=== PATIENT | male | born 1970 | race Caucasian/White ===

== ENCOUNTER → 2018-01-30 | Outpatient (CLI) | payer OTHER ==
--- NOTE | 2018-01-30 15:59 | PCVCIMAG ---
APPROVED REPORT Study performed: 01/30/2018 14:55:36 Exam: Stress Echocardiogram Indication: Dyspnea, chest pain, HTN, HLP Patient Location: Echo lab Stress Nurse: Roxana Cortez RN Status: routine Ht: 5 ft 10 in HR: 81 bpm BP: 136/82 mmHg Rhythm: NSR Procedure The patient underwent an Exercise Stress Test using the Tim Protocol. Blood pressure, heart rate, and EKG were monitored. An Echocardiogram was performed by billing and quality technician in four stages in quad fashion. At peak stress, four selected images were obtained and placed side by side with resting images for comparison. Stress Test Details Stress Test: Exercise stress testing was performed using a Tim protocol. HR Resting HR: 81 bpmMax Heart Rate (APMHR): 173 bpm Max HR Achieved: 166 bpmTarget HR (85% APMHR): 147 bpm % of APMHR: 95 Recovery HR: 105 bpm HR response to stress: Normal HR response to stress BP Resting BP: 136/82 mmHg Max BP: 180/80 mmHg Recovery BP: 140/80 mmHg BP response to stress: Normal blood pressure response to stress. ECG Resting ECG: Sinus Rhythm Stress ECG: Sinus Rhythm ST Change: Normal Arrhythmia: occasional isolated PVCs Recovery ECG: Sinus Rhythm Recovery ST Change: Normal Recovery Arrhythmia: None Clinical Reason for Termination: Maximal effort Stress Symptoms: Dyspnea Exercise duration: 11 min 2 sec Highest Stage Achieved: Stage 4: 4.2 mph at 16% grade. Exercise capacity: 13.4 METs Overall Exercise Capacity for Age: Normal Scale: Active Angina Score: None Pre-Stress Echo The resting Echocardiogram showed normal left ventricular contractility with an estimated Ejection Fraction of about 50-55%. Normal wall motion in all segments on baseline images. Post-Stress Echo The stress Echocardiogram showed normal left ventricular contractility with an estimated Ejection Fraction of about 65%. Normal augmentation of wall motion in all segments on post stress images. Clinical No clinical or ECG evidence for ischemia. Conclusion Clinical Response: Non-ischemic Exercise Capacity: Average Stress ECG Response: Non-ischemic Stress Echo Images: Non-ischemic The left ventricle is normal in size and borderline concentrically increased wall thickness in both the rest and stress images. Other Information Study Quality: Adequate <Conclusion> The left ventricle is normal in size and borderline concentrically increased wall thickness in both the rest and stress images.
== END | disposition home or self-care (01) ==
LOC: PCVCIMAG 14:59
PROVIDERS: ATTEND Internal Medicine Cardiovascular Disease
DX: I10 Essential (primary) hypertension (principal); R06.09 Other forms of dyspnea; R07.89 Other chest pain; E78.5 Hyperlipidemia, unspecified
CPT/HCPCS: 93325; 93351